=== PATIENT | female | born 1950 | race African-American/Black ===

== ENCOUNTER 2016-03-20 09:28 | Emergency (ER) | payer MEDICARE, SELFPAY ==
[2016-03-20] MEDS ORDERED: Nitroglycerin 0.4 MG TAB (25 Tab Bottle) ONE ×2 (09:45→10:07)
[2016-03-20] MEDS ORDERED: methylPREDNISolone Sod Succ/PF 125 MG/2 ML VIAL ONE (09:45)
[2016-03-20 10:03] LABS: #Basophils 0.2 thou/uL (0.0-0.2); #Lymphocytes 2.7 thou/uL (1.20-3.40); #Monocytes 0.6 thou/uL (0.11-0.59); #Neutrophils 11.4 thou/uL (1.40-6.50); %Basophils 1.1 % (0.0-1.0); %Eosinophils 0.2 % (0.0-10.0); %Monocytes 3.9 % (0.0-10.0); Hematocrit 46.5 % (36.0-47.0); Mean Platelet Volume 8.4 fL (7.4-10.4); Red Blood Cell (RBC) Count 4.78 mill/uL (4.20-5.40); White Blood Cell (WBC) Count 14.8 thou/uL (4.8-10.8)
[2016-03-20 10:04] LABS: PTT 26.6 SEC (22.9-36.1); Prothrombin Time 13.1 SEC (12.0-14.7)
[2016-03-20 10:23] LABS: ALT (SGPT) 9 U/L (0-55); AST (SGOT) 18 U/L (5-34); Alkaline Phosphatase 77 U/L (40-150); Anion Gap 18 mmol/L (10-20); BUN (Urea Nitrogen) 18 mg/dL (9.8-20.1); Bilirubin, Total 0.2 mg/dL (0.2-1.2); CK (CPK) 116 U/L (29-168); Calc. Creatinine Clearance 0 mL/min (70-130); Calcium 8.9 mg/dL (7.8-10.44); Carbon Dioxide 19 mmol/L (23-31); Chloride 111 mmol/L (98-107); Estimated GFR-MDRD 67; Globulin 3.4 g/dL (2.4-3.5); Lipase 16 U/L (8-78); Troponin I 0.297 ng/mL (< 0.028)
[2016-03-20] MEDS ORDERED: Enoxaparin Sodium 100 MG/ML SYRINGE ONE (10:35)
[2016-03-20] MEDS ORDERED: Nitroglycerin 2% Ointment 1 INCH/1 GM Packet ONE (10:35)
[2016-03-20] MEDS ORDERED: Sodium Chloride 0.9% 100 ML ONE (11:53)
[2016-03-20] MEDS ORDERED: cefTRIAXone\\ROCEPHIN 1 GM VIAL ONE (11:53)
[2016-03-20] MEDS ORDERED: Azithromycin 500 MG VIAL ONE (11:53)
[2016-03-20] MEDS ORDERED: Magnesium Sulfate 2 GM/100 ML BAG ONE (12:55)
[2016-03-20] MEDS ORDERED: Fentanyl 100 MCG/2 ML VIAL ONE ×2 (13:10→13:24)
[2016-03-20] MEDS ORDERED: Midazolam HCl 10 mg/2 ml Vial ONE ×2 (13:10→13:36)
[2016-03-20] MEDS ORDERED: Albuterol Sulfate 1.25 MG/3 ML NEB ONE (13:14)
[2016-03-20] MEDS ORDERED: Furosemide 40 MG/4 ML VIAL ONE (13:42)
--- NOTE | 2016-03-20 13:58 | ERRECORD ---
[facility] EMERGENCY RECORD HPI SHORTNESS OF BREATH (09:40 MBRI) CHIEF COMPLAINT: Patient presents for evaluation of shortness of breath, Patient presents for evaluation of chest pain. HISTORIAN: History provided by patient. LOCATION: Symptoms are localized, most severe in substernal area, No radiation of pain, Pain has not moved in location over time. QUALITY: Symptoms described as tightness, Symptoms described as wheezing, Pain is dull in nature, described as pressure-like, described as tightness reported. SEVERITY: Maximum severity of symptoms severe, Currently symptoms are severe. TIME COURSE: Gradual onset of symptoms, 15, hours prior to arrival, are constant. ASSOCIATED WITH: No associated anxiety, No associated chills, Associated with cough, Associated with chest pain, No associated diaphoresis, No associated diarrhea, Associated with dyspnea on exertion, No associated fever, No associated hemoptysis, No associated increased inhaler use, No associated nausea, No associated palpitations, Associated with paroxysmal nocturnal dyspnea, Associated with peripheral edema, No associated pleuritic chest pain, No associated upper respiratory infection, No associated vomiting, Associated with wheezing. EXACERBATED BY: Patient's condition exacerbated by exercise, Patient's condition exacerbated by lying flat, Patient's condition exacerbated by smoking. RELIEVED BY: Patient's condition relieved by nothing, Patient's condition relieved by nothing because patient has not tried anything for relief. RISK FACTORS: Coronary artery disease risk factors, include smoking, No thoracic aortic dissection risk factors, Pulmonary embolism risk factors, include smoking. ROS (09:42 MBRI) CONSTITUTIONAL: Negative constitutional review of systems, Historian denies chills, denies fever. EYES: Negative eye review of systems. ENT: Negative ears, nose, throat review of systems. CARDIOVASCULAR: Historian reports chest pain, substernal, no radiation, Historian reports diaphoresis, reports dyspnea on exertion, reports edema, denies syncope, denies palpitations. RESPIRATORY: Historian denies cough, reports shortness of breath, denies sputum, denies stridor, reports wheezing. GI: Negative gastrointestinal review of systems, Historian denies abdominal pain, denies nausea, denies vomiting. GENITOURINARY FEMALE: Negative genitourinary review of systems. MUSCULOSKELETAL: Negative musculoskeletal review of systems. SKIN: Negative skin review of systems. &a-1R&a+25V*p+0X*[id number]*c202B*c15G*c2P*p-0X&a-25V&a+1R Name: Hayden Corado : 1950 F66 MedRec: [id number] AcctNum: [id number] Prepared: Angelina Mar 20, 2016 13:55 by Interface Page 1 of 5 pMD [facility] EMERGENCY RECORD NEUROLOGIC: Negative neurologic review of systems, Historian denies headache, denies sensory changes, denies speech changes. ENDOCRINE: Negative endocrine review of systems. HEMO/LYMPHATIC: Normal hematologic/lymphatic system review. NOTES: All systems reviewed, negative except as described above. PAST MEDICAL HISTORY (09:40 KMOR) MEDICAL HISTORY: No past medical history, Flu vaccine not up to date, Tetanus not up to date, Pneumococcal vaccine not up to date. FEMALE SURGICAL HISTORY: Patient has no surgical history. PSYCHIATRIC HISTORY: No previous psychiatric history. SOCIAL HISTORY: Patient currently uses tobacco, smokes cigarettes, daily, Patient smokes 1 pack per day. KNOWN ALLERGIES No Known Drug Allergies CURRENT MEDICATIONS (09:58 LGIB) None VITAL SIGNS VITAL SIGNS: BP: 187/127, Pulse: 106, Resp: 40, Pain: 0, O2 sat: 90 on 2L Oxygen, Time: 03/20/2016 09:37. (09:37 KMOR) Temp: 97.4 (Oral), Time: 03/20/2016 09:48. (09:48 LGIB) BP: 163/93, Pulse: 96, Resp: 34, Pain: 0, O2 sat: 93 on 3L Oxygen, Time: 03/20/2016 09:45. (09:45 KMOR) BP: 147/87, Pulse: 80, Resp: 29, Pain: 0, O2 sat: 91 on 4L Oxygen, Time: 03/20/2016 10:08. (10:08 KMOR) BP: 152/89, Pulse: 78, Resp: 30, Pain: 0, O2 sat: 97 on 4L Oxygen, Time: 03/20/2016 10:23. (10:23 KMOR) BP: 175/97, Pulse: 85, Resp: 22, Pain: 0, O2 sat: 98 on 4L Oxygen, Time: 03/20/2016 11:00. (11:00 KMOR) BP: 162/97, Pulse: 82, Resp: 22, Pain: 0, O2 sat: 99 on 3L Oxygen, Time: 03/20/2016 11:50. (11:50 KMOR) BP: 156/102, Pulse: 112, Resp: 30, Pain: 0, O2 sat: 91 on 3L Oxygen, Time: 03/20/2016 12:35. (12:35 KMOR) BP: 123/87, Pulse: 103, Resp: 24, Pain: 0, O2 sat: 98 on Ventilator, Time: 03/20/2016 13:22. (13:22 KMOR) BP: 120/74, Pulse: 97, Resp: 20, Temp: 97.1 (Rectal), Pain: 0, O2 sat: 98 on Ventilator, Time: 03/20/2016 13:45. (13:45 KMOR) PHYSICAL EXAM (09:43 MBRI) CONSTITUTIONAL: Vital Signs Reviewed, Pulse, tachycardic, Blood pressure, hypertensive, Respiratory rate, increased, Abnormal Pulse Oximetry, Patient appears, in moderate pain distress, Patient alert and oriented to person, place and time, Nursing notes reviewed. HEAD: Head exam normal, Head exam included findings of head &a-1R&a+25V*p+0X*[id number]*c202B*c15G*c2P*p-0X&a-25V&a+1R Name: Hayden Corado : 1950 F66 MedRec: [id number] AcctNum: [id number] Prepared: Angelina Mar 20, 2016 13:55 by Interface Page 2 of 5 pMD [facility] EMERGENCY RECORD atraumatic, normocephalic. EYES: Eye exam included findings of eyelids normal to inspection, Pupils equally round and reactive to light, Extraocular muscles intact. ENT: ENT exam normal, Ear exam normal, Nose exam normal. NECK: Neck exam included findings of normal range of motion, Trachea midline, no tenderness, no abrasions, no contusions, no ecchymosis. RESPIRATORY CHEST: Respiratory exam included findings of, moderate respiratory distress, Breath sounds not clear, Wheezing present, audibly, posteriorally, diffusely, No rales, No rhonchi, Breath sounds diminished, Chest exam included findings of chest movement symmetrical, Chest expansion equal, no tenderness, no crepitus. CARDIOVASCULAR: Cardiovascular exam included findings of, rate tachycardic, rhythm regular, Heart sounds normal, Carotids normal, Pedal pulses normal. ABDOMEN FEMALE: Abdominal exam normal, Abdominal exam included findings of abdomen nontender, Bowel sounds normal. BACK: Back exam included findings of normal inspection, no tenderness. UPPER EXTREMITY: Upper extremity exam included findings of inspection normal, Range of motion normal, Motor strength normal, Sensation intact, Radial pulse normal, no cyanosis, no clubbing, no edema. LOWER EXTREMITY: Lower extremity exam included findings of inspection normal, Range of motion normal, Motor strength normal, Sensation intact, Pedal pulse normal, Jhonatan's negative, no cyanosis, no clubbing, no edema, no calf tenderness, no palpable cords. NEURO: Madhuri coma scale 15, Neuro exam findings include patient oriented to person, place and time, Speech normal, Gait normal. SKIN: Skin exam included findings of skin warm, dry, and normal in color. PSYCHIATRIC: Psychiatric exam included findings of patient oriented to person place and time. EKG INTERPRETATION (09:45 MBRI) 12 LEAD EKG INTERPRETATION: 12 lead EKG interpreted by Emergency Department Physician at time of study, 12 lead EKG shows, sinus tachycardia, Rate (beats per minute): 111, with no ectopics, Conduction with, nonspecific intraventricular conduction delay, ST, depression, in lead I, in lead II, in aVl, in aVf, in V4, in V5, in V6, [place] normal, Biatrial enlargement, LVH with repol abnml, possible age undetermined inf infarct. RADIOLOGYINTERPRETATION (11:53 MBRI) CHEST: Chest CT, with contrast shows, patchy &a-1R&a+25V*p+0X*q0442N*c202B*c15G*c2P*p-0X&a-25V&a+1R Name: Hayden Corado : 1950 F66 MedRec: [id number] AcctNum: [id number] Prepared: Angelina Mar 20, 2016 13:55 by Interface Page 3 of 5 pMD [facility] EMERGENCY RECORD infiltrate, to the right upper lobe, to the right lower lobe, no hemothorax, pleural effusion less than 10% on the left, pleural effusion less than 10% on the right, no pulmonary embolism. REFRIGERATION PERSON: Preliminary review of CT scans by, Radiologist. MEDICATION ADMINISTRATION SUMMARY Drug Name: *midazolam injection, Dose Ordered: 10 mg, Route: IV Fluid Infusion, Status: Given, Time: 13:48 03/20/2016, Drug Name: *Lasix injection, Dose Ordered: 80 mg, Route: IV Push, Status: Given, Time: 13:43 03/20/2016, Drug Name: *Quelicin, Dose Ordered: 100 mg, Route: IV Push, Status: Given, Time: 13:33 03/20/2016, Drug Name: *fentaNYL (PF) injection, Dose Ordered: 50 mcg, Route: IV Push, Status: Given, Time: 13:30 03/20/2016, Drug Name: *Versed injection, Dose Ordered: 5 mg, Route: IV Push, Status: Given, Time: 13:20 03/20/2016, Drug Name: *fentaNYL (PF) injection, Dose Ordered: 100 mcg, Route: IV Push, Status: Given, Time: 13:15 03/20/2016, Drug Name: magnesium sulfate injection, Dose Ordered: 2 g, Route: IV Piggy Back, Status: Given, Time: 13:00 03/20/2016, Drug Name: *Amidate, Dose Ordered: 20 mg, Route: IV Push, Status: Given, Time: 13:00 03/20/2016, Drug Name: *DuoNeb, Dose Ordered: 3 mL, Route: Nebulize, Status: Given, Time: 12:46 03/20/2016, Drug Name: azithromycin intravenous, Dose Ordered: 500 mg, Route: IV Piggy Back, Status: Given, Time: 12:02 03/20/2016, Drug Name: cefTRIAXone injection, Dose Ordered: 2 g, Route: IV Piggy Back, Status: Given, Time: 12:00 03/20/2016, Drug Name: Lovenox, Dose Ordered: 1 mg/kg, Route: Subcutaneous, Status: Given, Time: 11:09 03/20/2016, Drug Name: Nitro-Bid transdermal, Dose Ordered: 1 inch, Route: Topical, Status: Given, Time: 11:08 03/20/2016, Drug Name: *nitroglycerin sublingual, Dose Ordered: 0.4 mg, Route: Sublingual, Status: Given, Time: 09:52 03/20/2016, Drug Name: methylPREDNISolone sodium succ injection, Dose Ordered: 125 mg, Route: IV Push, Status: Given, Time: 09:51 03/20/2016, Drug Name: sodium chloride 0.9 % intravenous, Dose Ordered: 125 mL/hr, Route: IV Fluid Infusion, Status: Given, Time: 09:50 03/20/2016, Drug Name: aspirin oral, Dose Ordered: 324 mg, Route: Oral, Status: Given, Time: 09:48 03/20/2016, Drug Name: *DuoNeb, Dose Ordered: 3 mL, Route: Nebulize, Status: Given, Time: 09:40 03/20/2016, *Additional information available in notes, Detailed record available in Medication Service section. DOCTOR NOTES RE-EVALUATION: Routine re-evaluation, after administration of bronchodilator nebulizer treatments, Routine re-evaluation, after administration of nitroglycerin, Routine re-evaluation, after &a-1R&a+25V*p+0X*s9820A*c202B*c15G*c2P*p-0X&a-25V&a+1R Name: Hayden Corado : 1950 F66 MedRec: [id number] AcctNum: [id number] Prepared: Angelina Mar 20, 2016 13:55 by Interface Page 4 of 5 pMD [facility] EMERGENCY RECORD observation, Routine re-evaluation, after administration of oxygen therapy, The patient's condition has improved, Pt with Improved air movement and sig decrease in her wheezing. She continues to have some hypoxia in the 88-90 range on 2-3 L NC so this has been increased to 4LPM. She demonstrates some rales in the rizwan bases of the lungs. Will continue with second Neb and monitor. (10:07 MBRI) Routine re-evaluation, after administration of bronchodilator nebulizer treatments, Routine re-evaluation, after observation, Routine re-evaluation, after administration of oxygen therapy, The patient's condition has improved, Pt appears clinically improved. (10:37 MBRI) The patient's condition has improved, VS improved. Pt pain free. (11:52 MBRI) PATIENT PLAN: The patient requires a transfer and will be transferred, per physician request, due to availability of specialty care, Transfer form completed, Accepted for care by Dr Farah , at 1158. (11:52 MBRI) PROBLEM LIST No recorded problems DIAGNOSIS (11:52 MBRI) FINAL: PRIMARY: NSTEMI, ADDITIONAL: PNEUMONIA UNSPECIFIED ORGANISM, uncontrolled HTN, wheezing with likely COPD exacerbation. PRESCRIPTION No recorded prescriptions DISPOSITION PATIENT: Disposition Type: Transfer, Disposition: Transfer to [facility], Condition: Guarded. (10:36 MBRI) Patient left the department. (13:53 KMOR) Collins: KMOR=SHANE Medel, Nery LGIB=SHANE Young, Elke MBRI=DO Umana Matthew &a-1R&a+25V*p+0X*d4761M*c202B*c15G*c2P*p-0X&a-25V&a+1R Name: Hayden Corado : 1950 F66 MedRec: [id number] AcctNum: [id number] Prepared: Angelina Mar 20, 2016 13:55 by Interface Page 5 of 5 pMD MTDD
--- NOTE | 2016-03-20 14:02 | PICIS ---
[facility] EMERGENCY RECORD COMMUNICATIONS (12:07 LGIB) COMMUNICATIONS: Ambulance service, contacted at 1203, Name of provider [facility], Person contacted [facility], requested for transfer to another facility, by advanced life support transport. TRIAGE (MonMar 20, 2016 09:30 KMOR) TRIAGE NOTES: sob and chest pain started last night. (MonMar 20, 2016 09:30 KMOR) PATIENT: NAME: Hayden Corado, AGE: 66, GENDER: female, : Mon1950, TIME OF GREET: MonMar 20, 2016 09:29, PREFERRED LANGUAGE: Turkish, ECODE BILLING MAP: [facility], SSN: [id number], Zip Code: [address], KG WEIGHT: 90.72, PHONE: , , , PERSON ID: [id number], PCP: none. (MonMar 20, 2016 09:30 KMOR) PAYMENT: [facility] Medicare. (09:51) COMPLAINT: Shortness of Breath. (MonMar 20, 2016 09:30 KMOR) ADMISSION: URGENCY: 2 Emergent, ADMISSION SOURCE: Home, TRANSPORT: CAR, BED: ER -01. (MonMar 20, 2016 09:30 KMOR) ASSESSMENT: Assessment: A&OX4. AUDIABLE WHEEZING, Symptoms began yesterday. (09:40 KMOR) PAIN: No complaint of pain. (09:40 KMOR) SIRS SCORING: Heart Rate 110-139 (2), respiratory rate 25-34 (1), Mental Status altered: no (0), Yes, Infection or Suspected Infection. (09:40 KMOR) TRIAGE SCREENING: Patient denies suicidal ideation, Patient denies presence of domestic violence. (09:40 KMOR) PROVIDERS: TRIAGE NURSE: Nery Medel RN. (MonMar 20, 2016 09:30 KMOR) VITAL SIGNS: BP 187/127, Pulse 106, Resp 40, Pain 0, O2 Sat 90, on 2L Oxygen, Time 03/20/2016 09:37. (09:37 KMOR) KNOWN ALLERGIES No Known Drug Allergies CURRENT MEDICATIONS (09:58 LGIB) None VITAL SIGNS VITAL SIGNS: BP: 187/127, Pulse: 106, Resp: 40, Pain: 0, O2 sat: 90 on 2L Oxygen, Time: 03/20/2016 09:37. (09:37 KMOR) Temp: 97.4 (Oral), Time: 03/20/2016 09:48. (09:48 LGIB) BP: 163/93, Pulse: 96, Resp: 34, Pain: 0, O2 sat: 93 on 3L Oxygen, Time: 03/20/2016 09:45. (09:45 KMOR) BP: 147/87, Pulse: 80, Resp: 29, Pain: 0, O2 sat: 91 on 4L Oxygen, Time: 03/20/2016 10:08. (10:08 KMOR) BP: 152/89, Pulse: 78, Resp: 30, Pain: 0, O2 sat: 97 on 4L Oxygen, Time: 03/20/2016 10:23. (10:23 KMOR) BP: 175/97, Pulse: 85, Resp: 22, Pain: 0, O2 sat: 98 on 4L Oxygen, Time: 03/20/2016 11:00. (11:00 KMOR) BP: 162/97, Pulse: 82, Resp: 22, Pain: 0, O2 sat: 99 on 3L Oxygen, Time: &a-1R&a+25V*p+0X*c2033R*c202B*c15G*c2P*p-0X&a-25V&a+1R Name: Hayden Corado : 1950 F66 MedRec: [id number] AcctNum: [id number] Prepared: Angelina Mar 20, 2016 13:59 by Interface Page 1 of 21 pMD [facility] EMERGENCY RECORD 03/20/2016 11:50. (11:50 KMOR) BP: 156/102, Pulse: 112, Resp: 30, Pain: 0, O2 sat: 91 on 3L Oxygen, Time: 03/20/2016 12:35. (12:35 KMOR) BP: 123/87, Pulse: 103, Resp: 24, Pain: 0, O2 sat: 98 on Ventilator, Time: 03/20/2016 13:22. (13:22 KMOR) BP: 120/74, Pulse: 97, Resp: 20, Temp: 97.1 (Rectal), Pain: 0, O2 sat: 98 on Ventilator, Time: 03/20/2016 13:45. (13:45 KMOR) NURSING ASSESSMENT: CARDIOVASCULAR (10:23 KMOR) CARDIOVASCULAR: Cardiovascular assessment findings include heart rate, tachycardic, Rate 120s, Heart rhythm, sinus tachycardia, Heart sounds normal, S1, S2, Left radial pulse +3(easily palpated, considered normal), Right radial pulse +3(easily palpated, considered normal), Left dorsalis pedis pulse +3(easily palpated, considered normal), Right dorsalis pedis pulse +3(easily palpated, considered normal), Associated with dyspnea, with exertion, when lying flat (orthopnea), with position change, no associated syncopal episode, no associated weakness. NURSING ASSESSMENT: FALL RISK (10:24 KMOR) FALL RISK: Fall risk assessment findings include: no history of falls (0), No bed rest greater than 2 days (0), No use of level of consciousness altering agents with mentation or cognitive changes (0), No change in blood pressure (0), No sensory deficits (0), No impaired mobility (0), No neurologic diagnosis (0), No elimination problems (0), No confusion (0), Total score 0. NURSING ASSESSMENT: RESPIRATORY /CHEST (10:08 KMOR) CONSTITUTIONAL: Patient arrives, via hospital wheelchair, Unsteady gait, Assistance to cart, History obtained from patient, Patient appears, in respiratory distress, uncomfortable, Patient cooperative, Patient alert, Oriented to person, place and time, Skin abnormal, Skin temperature is cold, Skin dry, Skin normal in color, Mucous membranes pink, Mucous membranes moist, Patient, poorly groomed, Patient complains of Shortness of breath, Patient reports short of breath since last night, reports chest pressure. Reports cough. PAIN: Patient rates pain as 0 out of 10. RESPIRATORY/CHEST: Lungs auscultated, Breath sounds with wheezing, audibly, scattered, Respiratory assessment findings include respiratory effort, labored, shallow, tachypneic, Respirations regular, Converses, in short phrases, Neck and chest exam findings include trachea midline, Chest expansion equal, Chest movement symmetrical, Signs of distress, tripod positioning, in severe distress, Retractions, intercostal, Associated with cough, loose, no associated fever. &a-1R&a+25V*p+0X*r3983F*c202B*c15G*c2P*p-0X&a-25V&a+1R Name: Hayden Corado : 1950 F66 MedRec: [id number] AcctNum: [id number] Prepared: Angelina Mar 20, 2016 13:59 by Interface Page 2 of 21 pMD [facility] EMERGENCY RECORD ENT: Ear assessment findings include ear normal to inspection, no discharge, no complaint of congestion, Mouth and throat assessment findings include mouth inspection normal, Uvula normal, Tonsils normal, Mucous membranes pink, and moist, Able to swallow, Speech normal, no associated fever. NURSING PROCEDURE: BEDSIDE SIRS TESTING (10:24 KMOR) SCORES: Heart Rate 55-109 (0), Temp range 96.8-101.1 (0), respiratory rate 25-34 (1), Latest WBC 3-14.9 (0), Mental Status altered: no (0), Yes, Infection or Suspected Infection. NURSING PROCEDURE: CIGARETTE CATCHER (09:41 KMOR) PATIENT IDENTIFIER: Patient actively involved in identification process, Patient's identity verified by patient stating name, Patient's identity verified by patient stating date. CIGARETTE CATCHER: Cardiac monitoring indicated for SHORTNESS OF BREATH, Patient placed on case monitor, Heart rate: 120S, showing sinus tachycardia, Patient placed on non-invasive blood pressure monitor, with disposable blood pressure cuff applied, Patient placed on continuous pulse oximetry, Adult/pediatric oxisensor applied, Oxygen saturation 90%. NOTES: Patient tolerated procedure well. NURSING PROCEDURE: EKG CHART (09:30 KMOR) PATIENT IDENTIFIER: Patient actively involved in identification process, Patient's identity verified by patient stating name, Patient's identity verified by patient stating date. EKG: EKG indicated for SHORTNESS OF BREATH, 12 lead EKG performed on the left chest, done by shane JOSEPH, first EKG. FOLLOW-UP: After procedure, EKG for interpretation given to Dr. UMANA. NURSING PROCEDURE: GASTRIC TUBE (13:29 KMOR) PATIENT IDENTIFIER: Patient actively involved in identification process, Patient's identity verified by patient stating name, Patient's identity verified by patient stating date. GASTRIC TUBE: Gastric tube indicated for airway maintenance, 16fr gastric tube inserted, into the oral cavity, in one attempt, Placement verified by auscultation, Placement verified by stomach contents in tube, Placement verified by x-ray, of greenish-yellow fluid, Gastric tube to high suction, Notes: 60cm at lip. NURSING PROCEDURE: INTUBATION (13:26 KMOR) PATIENT IDENTIFIER: Patient actively involved in identification process, Patient's identity verified by patient stating name, Patient's identity verified by patient stating date, Patient's identity verified by family member. INTUBATION: Intubation indicated for severe respiratory distress, Prior to intubation oxygen saturation 90%, by &a-1R&a+25V*p+0X*u6411V*c202B*c15G*c2P*p-0X&a-25V&a+1R Name: Hayden Corado : 1950 F66 MedRec: [id number] AcctNum: [id number] Prepared: Angelina Mar 20, 2016 13:59 by Interface Page 3 of 21 pMD [facility] EMERGENCY RECORD adult/pediatric oxisensor, on 100%, via non-rebreather mask applied, Prior to intubation breath sounds with wheezing, Patient intubated orally, Intubated by Dr. Umana, using a 7.5 mm endotracheal tube, in one attempts, Number at the lip (cm) 24 cm, Yankauer suction at head of bed, Patient suctioned during intubation, Ventilated with Ambu bag post intubation, Endotracheal tube secured, with tube mukherjee, Positive carbon dioxide by detector, Chest x-ray ordered to confirm placement. FOLLOW-UP: Post intubation oxygen saturation 98%, After intubation, breath sounds positive for wheezing. NOTES: Patient tolerated procedure well. NURSING PROCEDURE: IV (09:42 KMOR) PATIENT IDENITIFIER: Patient actively involved in identification process, Patient's identity verified by patient stating name, Patient's identity verified by patient stating date. IV SITE 1: IV therapy indicated for hydration, IV therapy indicated for medication administration, IV established, to the left hand, using a 20 gauge catheter, in two attempts, Saline lock established, Flushed with normal saline (mls): 10, Labs drawn at time of placement, labeled in the presence of the patient and sent to lab. FOLLOW-UP SITE 1: After procedure, 2x3 ensure dressing applied, After procedure, no drainage at IV site, After procedure, no swelling at IV site, After procedure, no redness at IV site. NOTES: Procedure done by SHANE JOSEPH. NURSING PROCEDURE: LAB DRAW (09:57 KMOR) PATIENT IDENTIFIER: Patient actively involved in identification process, Patient's identity verified by patient stating name, Patient's identity verified by patient stating date. LAB DRAW: Lab draw indicated for obtaining specimens for evaluation, Subsequent lab draw performed, by venipuncture. NURSING PROCEDURE: NURSE NOTES NURSES NOTES: Notes: O2 increased to 4L by Dr. Umana, saturation 89% prior to increase. (10:07 KMOR) Notes: Dr. Umana in to discuss results and plan of care with patient. (11:14 KMOR) Notes: Patient began to wheeze again, Dr. Umana notified and orders received. (12:47 KMOR) Notes: PATIENT BECAME EXTREMELY ANXIOUS AND HEART RATE INCREASED TO 140S. PT STARTED TO NOT FOLLOW INSTRUCTIONS AND BECAME INCREASINGLY SHORT OF BREATH. DR UMANA CALLED AND IMMEDIATELY CAME DOWN TO EXAMINE PATIENT. (12:42 LGIB) Notes: Patient on neb treatement but became very anxious and not wanting to keep neb treatment on, pt reports she cnat breath, this nurse and omar at bedside, azithromycin stopped due to possible allergic recation, Dr. Umana called to beside, patient diaphoric, cool rags placed on patient, non-rebreather placed by Dr. Umana. Tried to get patient to calm down and focus on breathing, patient &a-1R&a+25V*p+0X*i0083I*c202B*c15G*c2P*p-0X&a-25V&a+1R Name: Hayden Corado : 1950 F66 MedRec: [id number] AcctNum: [id number] Prepared: Angelina Mar 20, 2016 13:59 by Interface Page 4 of 21 pMD [facility] EMERGENCY RECORD became more altered and fighting treatment. Patient's son stated to do whatever needed to be done. Dr. Umana ordered for intubation. Supplies brought to bedside, House Sup called to assist. (13:00 KMOR) NURSING PROCEDURE: OXYGEN THERAPY PATIENT IDENTIFIER: Patient actively involved in identification process, Patient's identity verified by patient stating name, Patient's identity verified by patient stating date. (09:30 KMOR) OXYGEN THERAPY: 3L oxygen given, via nasal cannula applied, Applied by SHANE Joseph. (09:35 LGIB) Oxygen therapy indicated for wheezing, Oxygen therapy indicated for desaturation, Oxygen therapy indicated for respiratory distress, Prior to procedure, breath sounds with wheezing, audibly, diffusely, Oxygen saturation 88%, by adult/pediatric oxisensor, multiple pulse oximetry reading, 2L oxygen given, via nasal cannula applied, Applied by SHANE Joseph. (09:30 KMOR) FOLLOW-UP: After procedure, oxygen saturation 91%, After procedure, breath sounds with wheezing, posteriorally, diffusely. (09:30 KMOR) NURSING PROCEDURE: RESPIRATORY INTERVENTIONS PATIENT IDENTIFIER: Patient actively involved in identification process, Patient's identity verified by patient stating name, Patient's identity verified by patient stating date. (09:40 KMOR) RESPIRATORY INTERVENTIONS: Respiratory interventions indicated for respiratory distress, Respiratory interventions indicated for wheezing, Pre-intervention breath sounds with wheezing, audibly, diffusely, Pre-intervention oxygen saturation 93%, by adult/pediatric oxisensor, multiple pulse oximetry reading. (09:40 KMOR) FOLLOW-UP: After procedure, oxygen saturation 98%, on 3L, Breath sounds otherwise clear. (11:18 KMOR) NURSING PROCEDURE: TRANSPORT TO TESTS TRANSPORT TO TESTS: Transport indicated to facilitate diagnosis, Patient transported to CT scan, via cart, Accompanied by x-ray geoscience technician. (10:35 LGIB) FOLLOW-UP: After procedure, patient returned to emergency department. (11:00 KMOR) NURSING PROCEDURE: URINE COLLECTION (13:27 KMOR) PATIENT IDENTIFIER: Patient actively involved in identification process, Patient's identity verified by patient stating name, Patient's identity verified by patient stating date. URINE COLLECTION FEMALE: Simple singh inserted, using a 16 fr pre-connected catheter, in one attempt, output amount (mL) 100ml, &a-1R&a+25V*p+0X*k4856E*c202B*c15G*c2P*p-0X&a-25V&a+1R Name: Hayden Corado : 1950 F66 MedRec: [id number] AcctNum: [id number] Prepared: Angelina Mar 20, 2016 13:59 by Interface Page 5 of 21 pMD [facility] EMERGENCY RECORD urine yellow in color, and cloudy, Singh has been anchored to leg and labeled with date and time, Specimen labeled in the presence of the patient and sent to lab, Specimen obtained for culture labeled in the presence of the patient and sent to lab. ORDER DETAILS Order Name: B type Natriuretic Peptide, Status: Active, Time: 09:38 03/20/2016, User: MBRI, - Ordered for: DO Umana Matthew, - Entered by: DO Umana Matthew - Angelina Mar 20, 2016 09:38, - Quantity: 1, Order Name: CIGARETTE CATCHER ED, Status: Done, Time: 09:40 03/20/2016, User: KMOR, - Ordered for: DO Umana Matthew, - Entered by: DO Umana Matthew - Angelina Mar 20, 2016 09:38, - Quantity: 1, Order Name: Cardiac Profile w/CKMB & Troponin - I, Status: Active, Time: 09:38 03/20/2016, User: MBRI, - Ordered for: DO Umana Matthew, - Entered by: DO Umana Matthew - Angelina Mar 20, 2016 09:38, - Quantity: 1, Order Name: CBC with Differential, Status: Active, Time: 09:38 03/20/2016, User: MBRI, - Ordered for: DO Umana Matthew, - Entered by: DO Umana Matthew - Angelina Mar 20, 2016 09:38, - Quantity: 1, Order Name: CK (CPK), Status: Active, Time: 09:38 03/20/2016, User: MBRI, - Ordered for: DO Umana Matthew, - Entered by: DO Umana Matthew - Angelina Mar 20, 2016 09:38, - Quantity: 1, Order Name: Comprehensive Metabolic Panel, Status: Active, Time: 09:38 03/20/2016, User: MBRI, - Ordered for: DO Umana Matthew, - Entered by: DO Umana Matthew - Angelina Mar 20, 2016 09:38, - Quantity: 1, Order Name: CTA Angio Chest W WO Con(PE Protocol), Status: Active, Time: 10:09 03/20/2016, User: NITA, - Ordered for: DO Umana Matthew, - Entered by: DO Umana Matthew - Angelina Mar 20, 2016 10:09, - Quantity: 1, Order Name: Culture, Blood, Status: Active, Time: 09:38 03/20/2016, User: NITA, - Ordered for: DO Umana Matthew, - Entered by: DO Umana Matthew - Angelina Mar 20, 2016 09:38, - Quantity: 1, Order Name: D-Dimer (Quantitative), Status: Active, Time: 09:38 03/20/2016, User: NITA, - Ordered for: DO Umana Matthew, &a-1R&a+25V*p+0X*g5726T*c202B*c15G*c2P*p-0X&a-25V&a+1R Name: Hayden Corado : 1950 F66 MedRec: [id number] AcctNum: [id number] Prepared: Angelina Mar 20, 2016 13:59 by Interface Page 6 of 21 pMD [facility] EMERGENCY RECORD - Entered by: DO Umana Matthew - Angelina Mar 20, 2016 09:38, - Quantity: 1, Order Name: EKG 12 Lead in Emergency Room, Status: Active, Time: 09:38 03/20/2016, User: NITA, - Ordered for: DO Umana Matthew, - Entered by: DO Umana Matthew - Angelina Mar 20, 2016 09:38, - Quantity: 1, Order Name: ERRT * Smal Vol Neb Initial Trmt, Status: Active, Time: 09:38 03/20/2016, User: NITA, - Ordered for: DO Umana Matthew, - Entered by: DO Umana Matthew - Angelina Mar 20, 2016 09:38, - Quantity: 1, Order Name: ERRT Oxygen Usage ER, Status: Active, Time: 09:38 03/20/2016, User: NITA, - Ordered for: DO Umana Matthew, - Entered by: DO Umana Matthew - Angelina Mar 20, 2016 09:38, - Quantity: 1, Order Name: ERRT Pulse Oximeter ER, Status: Active, Time: 09:38 03/20/2016, User: MBRI, - Ordered for: DO Umana Matthew, - Entered by: DO Umana Matthew - Angelina Mar 20, 2016 09:38, - Quantity: 1, Order Name: Lipase, Status: Active, Time: 09:38 03/20/2016, User: MBRI, - Ordered for: DO Umana Matthew, - Entered by: DO Umana Matthew - Angelina Mar 20, 2016 09:38, - Quantity: 1, Order Name: Protime with INR, Status: Active, Time: 09:38 03/20/2016, User: MBRI, - Ordered for: DO Umana Matthew, - Entered by: DO Umana Matthew - Angelina Mar 20, 2016 09:38, - Quantity: 1, Order Name: PTT, Status: Active, Time: 09:38 03/20/2016, User: MBRI, - Ordered for: DO Umana Matthew, - Entered by: DO Umana Matthew - Angelina Mar 20, 2016 09:38, - Quantity: 1, Order Name: SALINE LOCK, Status: Done, Time: 09:40 03/20/2016, User: KMOR, - Ordered for: DO Dong, Nemesio, - Entered by: DO Umana Matthew - Angelina Mar 20, 2016 09:38, - Quantity: 1, Order Name: XR Chest 1 View Portable, Status: Active, Time: 13:27 03/20/2016, User: SEC, - Ordered for: DO Umana Matthew, - Entered by: SHANE Yadav, [facility] Angelina Mar 20, 2016 13:27, - Quantity: 1, Order Name: XR Chest 1 View Portable, Status: Active, Time: 09:38 03/20/2016, User: MBRI, - Ordered for: DO Umana Matthew, - Entered by: DO Umana Matthew - Angelina Mar 20, 2016 09:38, - Quantity: 1. &a-1R&a+25V*p+0X*z7275R*c202B*c15G*c2P*p-0X&a-25V&a+1R Name: Hayden Corado : 1950 F66 MedRec: [id number] AcctNum: [id number] Prepared: Angelina Mar 20, 2016 13:59 by Interface Page 7 of 21 pMD [facility] EMERGENCY RECORD MEDICATION ADMINISTRATION SUMMARY Drug Name: *midazolam injection, Dose Ordered: 10 mg, Route: IV Fluid Infusion, Status: Given, Time: 13:48 03/20/2016, Drug Name: *Lasix injection, Dose Ordered: 80 mg, Route: IV Push, Status: Given, Time: 13:43 03/20/2016, Drug Name: *Quelicin, Dose Ordered: 100 mg, Route: IV Push, Status: Given, Time: 13:33 03/20/2016, Drug Name: *fentaNYL (PF) injection, Dose Ordered: 50 mcg, Route: IV Push, Status: Given, Time: 13:30 03/20/2016, Drug Name: *Versed injection, Dose Ordered: 5 mg, Route: IV Push, Status: Given, Time: 13:20 03/20/2016, Drug Name: *fentaNYL (PF) injection, Dose Ordered: 100 mcg, Route: IV Push, Status: Given, Time: 13:15 03/20/2016, Drug Name: magnesium sulfate injection, Dose Ordered: 2 g, Route: IV Piggy Back, Status: Given, Time: 13:00 03/20/2016, Drug Name: *Amidate, Dose Ordered: 20 mg, Route: IV Push, Status: Given, Time: 13:00 03/20/2016, Drug Name: *DuoNeb, Dose Ordered: 3 mL, Route: Nebulize, Status: Given, Time: 12:46 03/20/2016, Drug Name: azithromycin intravenous, Dose Ordered: 500 mg, Route: IV Piggy Back, Status: Given, Time: 12:02 03/20/2016, Drug Name: cefTRIAXone injection, Dose Ordered: 2 g, Route: IV Piggy Back, Status: Given, Time: 12:00 03/20/2016, Drug Name: Lovenox, Dose Ordered: 1 mg/kg, Route: Subcutaneous, Status: Given, Time: 11:09 03/20/2016, Drug Name: Nitro-Bid transdermal, Dose Ordered: 1 inch, Route: Topical, Status: Given, Time: 11:08 03/20/2016, Drug Name: *nitroglycerin sublingual, Dose Ordered: 0.4 mg, Route: Sublingual, Status: Given, Time: 09:52 03/20/2016, Drug Name: methylPREDNISolone sodium succ injection, Dose Ordered: 125 mg, Route: IV Push, Status: Given, Time: 09:51 03/20/2016, Drug Name: sodium chloride 0.9 % intravenous, Dose Ordered: 125 mL/hr, Route: IV Fluid Infusion, Status: Given, Time: 09:50 03/20/2016, Drug Name: aspirin oral, Dose Ordered: 324 mg, Route: Oral, Status: Given, Time: 09:48 03/20/2016, Drug Name: *DuoNeb, Dose Ordered: 3 mL, Route: Nebulize, Status: Given, Time: 09:40 03/20/2016, *Additional information available in notes, Detailed record available in Medication Service section. MEDICATION SERVICE Amidate: Order: Amidate (etomidate) - Dose: 20 mg : IV Push Schedule: Now Notes: verbal order Ordered by: Nemesio Umana DO Entered by: SHANE Gaspar Mar 20, 2016 13:30 Documented as given by: SHANE Gaspar Mar 20, 2016 13:00 Patient, Medication, Dose, Route and Time verified prior to &a-1R&a+25V*p+0X*w4519N*c202B*c15G*c2P*p-0X&a-25V&a+1R Name: Hayden Corado : 1950 F66 MedRec: [id number] AcctNum: [id number] Prepared: Angelina Mar 20, 2016 13:59 by Interface Page 8 of 21 pMD [facility] EMERGENCY RECORD administration. Amount given: 20mg, IV SITE #1 IVP, subsequent different medication, Rapidly, Awake and alert- acceptable, Catheter placement confirmed via flush prior to administration, IV site without signs or symptoms of infiltration during medication administration, No swelling during administration, No drainage during administration, IV flushed after administration, Correct patient, time, route, dose and medication confirmed prior to administration, Patient advised of actions and side-effects prior to administration, Allergies confirmed and medications reviewed prior to administration, Administered by SHANE Joseph, Patient in position of comfort, Side rails up, Cart in lowest position, Family at bedside, Co-signed by: DO Angelina Campos Mar 20, 2016 13:37. aspirin oral: Order: aspirin oral (aspirin) - Dose: 324 mg : Oral Ordered by: Nemesio Umana DO Entered by: DO Angelina Campos Mar 20, 2016 09:40 , Acknowledged by: SHANE Gaspar Mar 20, 2016 09:44 Documented as given by: SHANE Gaspar Mar 20, 2016 09:48 Patient, Medication, Dose, Route and Time verified prior to administration. Amount given: 324MG, Site: Medication administered P.O., Correct patient, time, route, dose and medication confirmed prior to administration, Patient advised of actions and side-effects prior to administration, Allergies confirmed and medications reviewed prior to administration, Patient in position of comfort, Side rails up, Cart in lowest position, Family at bedside. : Follow Up : Response assessment performed, No signs or symptoms of allergic reaction noted. (12:00 KMOR) azithromycin intravenous: Order: azithromycin intravenous (azithromycin) - Dose: 500 mg : IV Piggy Back Ordered by: Nemesio Umana DO Entered by: DO Angelina Campos Mar 20, 2016 11:51 , Acknowledged by: SHANE Gaspar Mar 20, 2016 11:52 Documented as given by: SHANE Gaspar Mar 20, 2016 12:02 Patient, Medication, Dose, Route and Time verified prior to administration. Amount given: 500MG, IV SITE #1 IVPB or drip, initial infusion, IVPB mixed in: 250ml, Fluid: 0.9NS, Verified Blood Culture collection prior to Antibiotic administration, Connections checked prior to administration, Line traced prior to administration, Catheter placement confirmed via flush prior to administration, IV site without signs or symptoms of infiltration during medication administration, No swelling during administration, No drainage during administration, IV flushed after administration, Correct patient, time, route, dose and medication confirmed prior to administration, Patient advised of actions and side-effects prior to administration, Allergies confirmed and medications reviewed prior to administration, Patient in position of comfort, Side rails up, Cart in lowest position, Family at bedside. &a-1R&a+25V*p+0X*a1446A*c202B*c15G*c2P*p-0X&a-25V&a+1R Name: Hayden Corado : 1950 F66 MedRec: [id number] AcctNum: [id number] Prepared: MonMar 20, 2016 13:59 by Interface Page 9 of 21 pMD [facility] EMERGENCY RECORD : Follow Up : Response assessment performed, No signs or symptoms of allergic reaction noted, _IV SITE #1:_, Medication infusion discontinued, on MonMar 20, 2016 12:55, 55 minutes, ., Total amount infused: 200ml, IV Line flushed after administration. (12:50 KMOR) cefTRIAXone injection: Order: cefTRIAXone injection (ceftriaxone sodium) - Dose: 2 g : IV Piggy Back Ordered by: Nemesio Umana DO Entered by: Nemesio Umana DO MonMar 20, 2016 11:51 , Acknowledged by: Nery Medel RN MonMar 20, 2016 11:52 Documented as given by: Nery Medel RN [place] Mar 20, 2016 12:00 Patient, Medication, Dose, Route and Time verified prior to administration. Amount given: 2G, IV SITE #1 IVPB or drip, initial infusion, IVPB mixed in: 100ml, Fluid: 0.9NS, via primary tubing, Verified Blood Culture collection prior to Antibiotic administration, Connections checked prior to administration, Line traced prior to administration, Catheter placement confirmed via flush prior to administration, IV site without signs or symptoms of infiltration during medication administration, No swelling during administration, No drainage during administration, IV flushed after administration, Correct patient, time, route, dose and medication confirmed prior to administration, Patient advised of actions and side-effects prior to administration, Allergies confirmed and medications reviewed prior to administration, Patient in position of comfort, Side rails up, Cart in lowest position, Family at bedside. : Follow Up : Response assessment performed, No signs or symptoms of allergic reaction noted, _IV SITE #1:_, Medication infusion discontinued, on MonMar 20, 2016 12:35, 35 minutes, ., Total amount infused: 100ML. (12:36 KMOR) DuoNeb: Order: DuoNeb (ipratropium bromide/albuterol sulfate) - Dose: 3 mL : Nebulize Notes: (0.5mg Ipratropium [place]/3mg Albuterol Sulfate = 3ml) Ordered by: Nemesio Umana DO Entered by: DO Angelina Campos Mar 20, 2016 09:38 Documented as given by: SHANE Gaspar Mar 20, 2016 09:40 Patient, Medication, Dose, Route and Time verified prior to administration. Amount given: 3ML, Site: Medication administered via Hand-held nebulizer, With oxygen, Correct patient, time, route, dose and medication confirmed prior to administration, Patient advised of actions and side-effects prior to administration, Allergies confirmed and medications reviewed prior to administration, Patient in position of comfort, Side rails up, Cart in lowest position. : Follow Up : Response assessment performed, No signs or symptoms of allergic reaction noted, Decreased respiratory rate, Decreased respiratory effort. (10:15 KMOR) DuoNeb: Order: DuoNeb (ipratropium bromide/albuterol sulfate) - Dose: 3 mL : Nebulize Notes: (0.5mg Ipratropium [place]/3mg Albuterol Sulfate = 3ml) &a-1R&a+25V*p+0X*r0405R*c202B*c15G*c2P*p-0X&a-25V&a+1R Name: Hayden Corado : 1950 F66 MedRec: [id number] AcctNum: [id number] Prepared: Angelina Mar 20, 2016 13:59 by Interface Page 10 of 21 pMD [facility] EMERGENCY RECORD Ordered by: Nemesio Umana DO Entered by: SHANE Gaspar Mar 20, 2016 12:45 Documented as given by: SHANE Gaspar Mar 20, 2016 12:46 Patient, Medication, Dose, Route and Time verified prior to administration. Amount given: 3ML, Site: Medication administered via Hand-held nebulizer, With oxygen, Correct patient, time, route, dose and medication confirmed prior to administration, Patient advised of actions and side-effects prior to administration, Allergies confirmed and medications reviewed prior to administration, Patient in position of comfort, Side rails up, Cart in lowest position, Family at bedside, Co-signed by: DO Angelina Campos Mar 20, 2016 12:56. fentaNYL (PF) injection: Order: fentaNYL (PF) injection (fentanyl citrate/preservative free) - Dose: 50 mcg : IV Push Schedule: Now Notes: verbal order Ordered by: Nemesoi Umana DO Entered by: SHANE Gaspar Mar 20, 2016 13:31 Documented as given by: SHANE Gaspar Mar 20, 2016 13:30 Patient, Medication, Dose, Route and Time verified prior to administration. Amount given: 50mcg, IV SITE #1 IVP, repeat same medication, Rapidly, Connections checked prior to administration, Line traced prior to administration, Catheter placement confirmed via flush prior to administration, IV site without signs or symptoms of infiltration during medication administration, No swelling during administration, No drainage during administration, IV flushed after administration, Correct patient, time, route, dose and medication confirmed prior to administration, Patient advised of actions and side-effects prior to administration, Allergies confirmed and medications reviewed prior to administration, Patient in position of comfort, Side rails up, Cart in lowest position, Family at bedside, Co-signed by: DO Angelina Campos Mar 20, 2016 13:36. fentaNYL (PF) injection: Order: fentaNYL (PF) injection (fentanyl citrate/preservative free) - Dose: 100 mcg : IV Push Schedule: Now Notes: verbal order Ordered by: Nemesio Umana DO Entered by: SHANE Gaspar Mar 20, 2016 13:31 Documented as given by: SHANE Gaspar Mar 20, 2016 13:15 Patient, Medication, Dose, Route and Time verified prior to administration. Amount given: 100mcg, IV SITE #1 IVP, subsequent different medication, Slowly, Awake and alert- acceptable, Catheter placement confirmed via flush prior to administration, IV site without signs or symptoms of infiltration during medication administration, No swelling during administration, No drainage during administration, IV &a-1R&a+25V*p+0X*[id number]*c202B*c15G*c2P*p-0X&a-25V&a+1R Name: Hayden Corado : 1950 F66 MedRec: [id number] AcctNum: [id number] Prepared: Angelina Mar 20, 2016 13:59 by Interface Page 11 of 21 pMD [facility] EMERGENCY RECORD flushed after administration, Correct patient, time, route, dose and medication confirmed prior to administration, Patient advised of actions and side-effects prior to administration, Allergies confirmed and medications reviewed prior to administration, Patient in position of comfort, Side rails up, Cart in lowest position, Family at bedside, Co-signed by: DO Angelina Campos Mar 20, 2016 13:37. Lasix injection: Order: Lasix injection (furosemide) - Dose: 80 mg : IV Push Schedule: Now Notes: verbal order Ordered by: Nemesio Umana DO Entered by: SHANE Gaspar Mar 20, 2016 13:52 Documented as given by: SHANE Gaspar Mar 20, 2016 13:43 Patient, Medication, Dose, Route and Time verified prior to administration. Amount given: 80mg, IV SITE #1 IVP, subsequent different medication, Slowly, Connections checked prior to administration, Line traced prior to administration, Catheter placement confirmed via flush prior to administration, IV site without signs or symptoms of infiltration during medication administration, No swelling during administration, No drainage during administration, IV flushed after administration, Correct patient, time, route, dose and medication confirmed prior to administration, Patient advised of actions and side-effects prior to administration, Allergies confirmed and medications reviewed prior to administration, Patient in position of comfort, Side rails up, Cart in lowest position, Family at bedside. Lovenox: Order: Lovenox (enoxaparin sodium) - Dose: 1 mg/kg : Subcutaneous Ordered by: Nemesio Umana DO Entered by: DO Angelina Campos Mar 20, 2016 10:32 , Acknowledged by: Nery Medel RN MonMar 20, 2016 10:33, Co-signed by: SHANE Paris Mar 20, 2016 11:04 Documented as given by: SHANE Gaspar Mar 20, 2016 11:09 Patient, Medication, Dose, Route and Time verified prior to administration. Amount given: 90mg, Medication administered to right lower back, Advised not to ambulate without assistance, Patient in position of comfort, Side rails up, Cart in lowest position, Family at bedside. : Follow Up : Response assessment performed, No signs or symptoms of allergic reaction noted. (12:36 KMOR) : Follow Up : Response assessment performed, No signs or symptoms of allergic reaction noted. (12:00 KMOR) magnesium sulfate injection: Order: magnesium sulfate injection (magnesium sulfate) - Dose: 2 g : IV Piggy Back Ordered by: Nemesio Umana DO Entered by: DO Angelina Campos Mar 20, 2016 12:57 Documented as given by: SHANE Gaspar Mar 20, 2016 13:00 Patient, Medication, Dose, Route and Time verified prior to administration. &a-1R&a+25V*p+0X*x5498Y*c202B*c15G*c2P*p-0X&a-25V&a+1R Name: Hayden Corado : 1950 F66 MedRec: [id number] AcctNum: [id number] Prepared: Angelina Mar 20, 2016 13:59 by Interface Page 12 of 21 pMD [facility] EMERGENCY RECORD Amount given: 2g, IV SITE #1 IVPB or drip, initial infusion, Premixed, Connections checked prior to administration, Line traced prior to administration, Catheter placement confirmed via flush prior to administration, IV site without signs or symptoms of infiltration during medication administration, No swelling during administration, No drainage during administration, IV flushed after administration, Correct patient, time, route, dose and medication confirmed prior to administration, Patient advised of actions and side-effects prior to administration, Allergies confirmed and medications reviewed prior to administration, Patient in position of comfort, Side rails up, Cart in lowest position, Family at bedside. methylPREDNISolone sodium succ injection: Order: methylPREDNISolone sodium succ injection (methylprednisolone sod succ) - Dose: 125 mg : IV Push Ordered by: Nemesio Umana DO Entered by: DO Angelina Campos Mar 20, 2016 09:38 , Acknowledged by: SHANE Gaspar Mar 20, 2016 09:43 Documented as given by: SHANE Gaspar Mar 20, 2016 09:51 Patient, Medication, Dose, Route and Time verified prior to administration. Amount given: 125MG, IV SITE #1 IVP, initial medication, Slowly, Catheter placement confirmed via flush prior to administration, IV site without signs or symptoms of infiltration during medication administration, No swelling during administration, No drainage during administration, IV flushed after administration, Correct patient, time, route, dose and medication confirmed prior to administration, Patient advised of actions and side-effects prior to administration, Allergies confirmed and medications reviewed prior to administration, Patient in position of comfort, Side rails up, Cart in lowest position, Family at bedside. : Follow Up : Response assessment performed, No signs or symptoms of allergic reaction noted, Decreased respiratory rate, Decreased respiratory effort, _IV SITE #1:_. (12:37 KMOR) midazolam injection: Order: midazolam injection (midazolam HCl) - Dose: 10 mg : IV Fluid Infusion Schedule: Now Notes: 10 mg Versed in 100mL NS, start infusion at 10mL/hr IV. Ordered by: Nemesio Umana DO Entered by: DO Angelina Campos Mar 20, 2016 13:41 Documented as given by: SHANE Gaspar Mar 20, 2016 13:48 Patient, Medication, Dose, Route and Time verified prior to administration. Amount given: 10mg, IV SITE #1 IVPB or drip, initial infusion, IVPB mixed in: 100ml, Fluid: 0.9NS, at 1ml/hr, Ordering Physician approved to Give, Catheter placement confirmed via flush prior to administration, IV site without signs or symptoms of infiltration during medication administration, No swelling during administration, No drainage during administration, IV flushed after administration, Correct patient, time, route, dose and medication confirmed prior to &a-1R&a+25V*p+0X*u9064W*c202B*c15G*c2P*p-0X&a-25V&a+1R Name: Hayden Corado : 1950 F66 MedRec: [id number] AcctNum: [id number] Prepared: Angelina Mar 20, 2016 13:59 by Interface Page 13 of 21 pMD [facility] EMERGENCY RECORD administration, Patient advised of actions and side-effects prior to administration, Allergies confirmed and medications reviewed prior to administration, Patient in position of comfort, Side rails up, Cart in lowest position. Nitro-Bid transdermal: Order: Nitro-Bid transdermal (nitroglycerin) - Dose: 1 inch : Topical Ordered by: Nemesio Umana DO Entered by: DO Angelina Campos Mar 20, 2016 10:32 , Acknowledged by: SHANE Gaspar Mar 20, 2016 10:33 Documented as given by: SHANE Gaspar Mar 20, 2016 11:08 Patient, Medication, Dose, Route and Time verified prior to administration. Amount given: 1 inch, Correct patient, time, route, dose and medication confirmed prior to administration, Patient advised of actions and side-effects prior to administration, Allergies confirmed and medications reviewed prior to administration, Advised not to ambulate without assistance, Patient in position of comfort, Side rails up, Cart in lowest position, Family at bedside. : Follow Up : Response assessment performed, No signs or symptoms of allergic reaction noted. (12:37 KMOR) nitroglycerin sublingual: Order: nitroglycerin sublingual (nitroglycerin) - Dose: 0.4 mg : Sublingual Schedule: Every 5 minutes Notes: x 3 Ordered by: Nemesio Umana DO Entered by: DO Angelina Campos Mar 20, 2016 09:40 , Acknowledged by: SHANE Gaspar Mar 20, 2016 09:44 Documented as given by: SHANE Gaspar Mar 20, 2016 09:52 Patient, Medication, Dose, Route and Time verified prior to administration. Amount given: 1 TAB, Site: Medication administered S.L., Snack given with administration, Mouth check performed after administration of medication, Correct patient, time, route, dose and medication confirmed prior to administration, Patient advised of actions and side-effects prior to administration, Allergies confirmed and medications reviewed prior to administration, Patient in position of comfort, Side rails up, Cart in lowest position, Family at bedside. Quelicin: Order: Quelicin (succinylcholine chloride) - Dose: 100 mg : IV Push Schedule: Now Notes: verbal order Ordered by: Nemesio Umana DO Entered by: SHANE Gaspar Mar 20, 2016 13:30 Documented as given by: SHANE Gaspar Mar 20, 2016 13:33 Patient, Medication, Dose, Route and Time verified prior to administration. Amount given: 100mg, IV SITE #1 IVP, subsequent different medication, Rapidly, Ordering Physician approved to Give, Catheter placement confirmed via flush prior to administration, IV site without signs or symptoms of infiltration during medication &a-1R&a+25V*p+0X*e3729M*c202B*c15G*c2P*p-0X&a-25V&a+1R Name: Hayden Corado : 1950 F66 MedRec: [id number] AcctNum: [id number] Prepared: Angelina Mar 20, 2016 13:59 by Interface Page 14 of 21 pMD [facility] EMERGENCY RECORD administration, No swelling during administration, No drainage during administration, IV flushed after administration, Correct patient, time, route, dose and medication confirmed prior to administration, Patient advised of actions and side-effects prior to administration, Allergies confirmed and medications reviewed prior to administration, Patient in position of comfort, Side rails up, Cart in lowest position, Family at bedside, Co-signed by: DO Angelina Campos Mar 20, 2016 13:37. sodium chloride 0.9 % intravenous: Order: sodium chloride 0.9 % intravenous (0.9 % sodium chloride) - Dose: 125 mL/hr : IV Fluid Infusion Schedule: Now Ordered by: Nemesio Umana DO Entered by: DO Angelina Campos Mar 20, 2016 09:39 , Acknowledged by: SHANE Gaspar Mar 20, 2016 09:43 Documented as given by: SHANE Gaspar Mar 20, 2016 09:50 Patient, Medication, Dose, Route and Time verified prior to administration. Amount given: 125ML/HR, IV SITE #1 IV fluids established for hydration, IV SITE #1 into left hand, IV SITE #1 1st bag hung, amount 1 Liter hung, IV SITE #1 Rate of infusion (non-bolus) Infusing at 125 ml/hr, via primary tubing, IV SITE #1 on IV pump, Connections checked prior to administration, Line traced prior to administration, Catheter placement confirmed via flush prior to administration, IV site without signs or symptoms of infiltration during medication administration, No swelling during administration, No drainage during administration, IV flushed after administration, Correct patient, time, route, dose and medication confirmed prior to administration, Patient advised of actions and side-effects prior to administration, Allergies confirmed and medications reviewed prior to administration, Patient in position of comfort, Side rails up, Cart in lowest position, Family at bedside. Versed injection: Order: Versed injection (midazolam HCl) - Dose: 5 mg : IV Push Schedule: Now Notes: verbal order Ordered by: Nemesio Umana DO Entered by: SHANE Gaspar Mar 20, 2016 13:32 Documented as given by: SHANE Gaspar Mar 20, 2016 13:20 Patient, Medication, Dose, Route and Time verified prior to administration. Amount given: 5mg, IV SITE #1 IVP, subsequent different medication, Ordering Physician approved to Give, Catheter placement confirmed via flush prior to administration, IV site without signs or symptoms of infiltration during medication administration, No swelling during administration, No drainage during administration, IV flushed after administration, Correct patient, time, route, dose and medication confirmed prior to administration, Patient advised of actions and side-effects prior to administration, Allergies confirmed and medications reviewed prior to administration, Patient in position of &a-1R&a+25V*p+0X*d7950V*c202B*c15G*c2P*p-0X&a-25V&a+1R Name: Hayden Corado : 1950 F66 MedRec: [id number] AcctNum: [id number] Prepared: Angelina Mar 20, 2016 13:59 by Interface Page 15 of 21 pMD [facility] EMERGENCY RECORD comfort, Side rails up, Cart in lowest position, Family at bedside, Co-signed by: DO Angelina Campos Mar 20, 2016 13:36. HPI SHORTNESS OF BREATH (09:40 MBRI) CHIEF COMPLAINT: Patient presents for evaluation of shortness of breath, Patient presents for evaluation of chest pain. HISTORIAN: History provided by patient. LOCATION: Symptoms are localized, most severe in substernal area, No radiation of pain, Pain has not moved in location over time. QUALITY: Symptoms described as tightness, Symptoms described as wheezing, Pain is dull in nature, described as pressure-like, described as tightness reported. SEVERITY: Maximum severity of symptoms severe, Currently symptoms are severe. TIME COURSE: Gradual onset of symptoms, 15, hours prior to arrival, are constant. ASSOCIATED WITH: No associated anxiety, No associated chills, Associated with cough, Associated with chest pain, No associated diaphoresis, No associated diarrhea, Associated with dyspnea on exertion, No associated fever, No associated hemoptysis, No associated increased inhaler use, No associated nausea, No associated palpitations, Associated with paroxysmal nocturnal dyspnea, Associated with peripheral edema, No associated pleuritic chest pain, No associated upper respiratory infection, No associated vomiting, Associated with wheezing. EXACERBATED BY: Patient's condition exacerbated by exercise, Patient's condition exacerbated by lying flat, Patient's condition exacerbated by smoking. RELIEVED BY: Patient's condition relieved by nothing, Patient's condition relieved by nothing because patient has not tried anything for relief. RISK FACTORS: Coronary artery disease risk factors, include smoking, No thoracic aortic dissection risk factors, Pulmonary embolism risk factors, include smoking. ROS (09:42 MBRI) CONSTITUTIONAL: Negative constitutional review of systems, Historian denies chills, denies fever. EYES: Negative eye review of systems. ENT: Negative ears, nose, throat review of systems. CARDIOVASCULAR: Historian reports chest pain, substernal, no radiation, Historian reports diaphoresis, reports dyspnea on exertion, reports edema, denies syncope, denies palpitations. RESPIRATORY: Historian denies cough, reports shortness of breath, denies sputum, denies stridor, reports wheezing. GI: Negative gastrointestinal review of systems, Historian denies abdominal pain, denies nausea, denies vomiting. &a-1R&a+25V*p+0X*z0468E*c202B*c15G*c2P*p-0X&a-25V&a+1R Name: Hayden Corado : 1950 F66 MedRec: [id number] AcctNum: [id number] Prepared: Angelina Mar 20, 2016 13:59 by Interface Page 16 of 21 pMD [facility] EMERGENCY RECORD GENITOURINARY FEMALE: Negative genitourinary review of systems. MUSCULOSKELETAL: Negative musculoskeletal review of systems. SKIN: Negative skin review of systems. NEUROLOGIC: Negative neurologic review of systems, Historian denies headache, denies sensory changes, denies speech changes. ENDOCRINE: Negative endocrine review of systems. HEMO/LYMPHATIC: Normal hematologic/lymphatic system review. NOTES: All systems reviewed, negative except as described above. PAST MEDICAL HISTORY (09:40 KMOR) MEDICAL HISTORY: No past medical history, Flu vaccine not up to date, Tetanus not up to date, Pneumococcal vaccine not up to date. FEMALE SURGICAL HISTORY: Patient has no surgical history. PSYCHIATRIC HISTORY: No previous psychiatric history. SOCIAL HISTORY: Patient currently uses tobacco, smokes cigarettes, daily, Patient smokes 1 pack per day. PHYSICAL EXAM (09:43 MBRI) CONSTITUTIONAL: Vital Signs Reviewed, Pulse, tachycardic, Blood pressure, hypertensive, Respiratory rate, increased, Abnormal Pulse Oximetry, Patient appears, in moderate pain distress, Patient alert and oriented to person, place and time, Nursing notes reviewed. HEAD: Head exam normal, Head exam included findings of head atraumatic, normocephalic. EYES: Eye exam included findings of eyelids normal to inspection, Pupils equally round and reactive to light, Extraocular muscles intact. ENT: ENT exam normal, Ear exam normal, Nose exam normal. NECK: Neck exam included findings of normal range of motion, Trachea midline, no tenderness, no abrasions, no contusions, no ecchymosis. RESPIRATORY CHEST: Respiratory exam included findings of, moderate respiratory distress, Breath sounds not clear, Wheezing present, audibly, posteriorally, diffusely, No rales, No rhonchi, Breath sounds diminished, Chest exam included findings of chest movement symmetrical, Chest expansion equal, no tenderness, no crepitus. CARDIOVASCULAR: Cardiovascular exam included findings of, rate tachycardic, rhythm regular, Heart sounds normal, Carotids normal, Pedal pulses normal. ABDOMEN FEMALE: Abdominal exam normal, Abdominal exam included findings of abdomen nontender, Bowel sounds normal. BACK: Back exam included findings of normal inspection, no tenderness. UPPER EXTREMITY: Upper extremity exam included findings of inspection normal, Range of motion normal, Motor strength normal, &a-1R&a+25V*p+0X*j3421O*c202B*c15G*c2P*p-0X&a-25V&a+1R Name: Hayden Corado : 1950 F66 MedRec: [id number] AcctNum: [id number] Prepared: Angelina Mar 20, 2016 13:59 by Interface Page 17 of 21 pMD [facility] EMERGENCY RECORD Sensation intact, Radial pulse normal, no cyanosis, no clubbing, no edema. LOWER EXTREMITY: Lower extremity exam included findings of inspection normal, Range of motion normal, Motor strength normal, Sensation intact, Pedal pulse normal, Jhonatan's negative, no cyanosis, no clubbing, no edema, no calf tenderness, no palpable cords. NEURO: Eckley coma scale 15, Neuro exam findings include patient oriented to person, place and time, Speech normal, Gait normal. SKIN: Skin exam included findings of skin warm, dry, and normal in color. PSYCHIATRIC: Psychiatric exam included findings of patient oriented to person place and time. LAB INTERPRETATION (10:37 MBRI) INTERPRETATION: I reviewed the lab results. EVENTS TRANSFER: Triage to Emergency Emergency Room -. (Angelina Mar 20, 2016 09:30 KMOR) Removed from Emergency Emergency Room -. (13:53 KMOR) RADIOLOGYINTERPRETATION (11:53 MBRI) CHEST: Chest CT, with contrast shows, patchy infiltrate, to the right upper lobe, to the right lower lobe, no hemothorax, pleural effusion less than 10% on the left, pleural effusion less than 10% on the right, no pulmonary embolism. 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 EKG INTERPRETATION (09:45 MBRI) 12 LEAD EKG INTERPRETATION: 12 lead EKG interpreted by Emergency Department Physician at time of study, 12 lead EKG shows, sinus tachycardia, Rate (beats per minute): 111, with no ectopics, Conduction with, nonspecific intraventricular conduction delay, ST, depression, in lead I, in lead II, in aVl, in aVf, in V4, in V5, in V6, [place] normal, Biatrial enlargement, LVH with repol abnml, possible age undetermined inf infarct. O2SAT INTERPRETATION (09:44 MBRI) O2SAT: Oxygen saturation interpretation: Hypoxic, Intervention required: patient observed, Intervention required: Oxygen administration, Intervention required: aerosol treatment. DOCTOR NOTES RE-EVALUATION: Routine re-evaluation, after administration of bronchodilator nebulizer treatments, Routine re-evaluation, after administration of nitroglycerin, Routine re-evaluation, after observation, Routine re-evaluation, after administration of oxygen &a-1R&a+25V*p+0X*o9350X*c202B*c15G*c2P*p-0X&a-25V&a+1R Name: Hayden Corado : 1950 F66 MedRec: [id number] AcctNum: [id number] Prepared: Angelina Mar 20, 2016 13:59 by Interface Page 18 of 21 pMD [facility] EMERGENCY RECORD therapy, The patient's condition has improved, Pt with Improved air movement and sig decrease in her wheezing. She continues to have some hypoxia in the 88-90 range on 2-3 L NC so this has been increased to 4LPM. She demonstrates some rales in the rizwan bases of the lungs. Will continue with second Neb and monitor. (10:07 MBRI) Routine re-evaluation, after administration of bronchodilator nebulizer treatments, Routine re-evaluation, after observation, Routine re-evaluation, after administration of oxygen therapy, The patient's condition has improved, Pt appears clinically improved. (10:37 MBRI) The patient's condition has improved, VS improved. Pt pain free. (11:52 MBRI) PATIENT PLAN: The patient requires a transfer and will be transferred, per physician request, due to availability of specialty care, Transfer form completed, Accepted for care by Dr Farah , at 1158. (11:52 MBRI) PROBLEM LIST No recorded problems DIAGNOSIS (11:52 MBRI) FINAL: PRIMARY: NSTEMI, ADDITIONAL: PNEUMONIA UNSPECIFIED ORGANISM, uncontrolled HTN, wheezing with likely COPD exacerbation. DISPOSITION PATIENT: Disposition Type: Transfer, Disposition: Transfer to [facility], Condition: Guarded. (10:36 MBRI) Patient left the department. (13:53 KMOR) PRESCRIPTION No recorded prescriptions IMAGING *EKG: Image captured from scanner. (10:18 LGIB) CONSENTS: Image captured from scanner. (12:05 LGIB) *MEMORANDUM OF TRANSFER: Image captured from scanner. (12:06 LGIB) PHYSICIAN CERTIFICATION STATEMENT: Image captured from scanner. (12:06 LGIB) RESULTS (10:31 MBRI) LABORATORY: Cardiac Profile w/CKMB & TropI Collection DT: Angelina Mar 20, 2016 09:55, Critical Call CKMBM @ 1026 , , *CKMB 7.4 - *H ng/mL, Range (0-6.6), Critical value!, *Troponin I 0.297 - H ng/mL, Range (< 0.028), Reference Range &a-1R&a+25V*p+0X*r9831G*c202B*c15G*c2P*p-0X&a-25V&a+1R Name: Hayden Corado : 1950 F66 MedRec: [id number] AcctNum: [id number] Prepared: MonMar 20, 2016 13:59 by Interface Page 19 of 21 pMD [facility] EMERGENCY RECORD , 0.00 - 0.028 ng/mL Negative 0.029 - 0.29 ng/mL , Indeterminate Greater or Equal to 0.3 ng/mL Strongly suggests [place] , . B type Natriuretic Peptide Collection DT: MonMar 20, 2016 09:55, *B type Natriuretic Peptide 368.3 - H pg/mL, Range (0-100). Lipase Collection DT: MonMar 20, 2016 09:55, Lipase 16 U/L, Range (8-78). CK (CPK) Collection DT: MonMar 20, 2016 09:55, CK (CPK) 116 U/L, Range (29-168). Comprehensive Metabolic Panel Collection DT: MonMar 20, 2016 09:55, Sodium 144 mmol/L, Range (136-145), Potassium 3.8 mmol/L, Range (3.5-5.1), *Chloride 111 - H mmol/L, Range (98-107), *Carbon Dioxide 19 - L mmol/L, Range (23-31), Anion Gap 18 mmol/L, Range (10-20), BUN (Urea Nitrogen) 18 mg/dL, Range (9.8-20.1), Creatinine 1.00 mg/dL, Range (0.6-1.1), Estimated GFR-MDRD 67 , Reference Range for Estimated GFR: Greater than 90, mL/min/1.73 m2 NOTE: The MDRD equation has not been validated for use, with the elderly (over 70 years of age), women, patients with, serious comorbid condition or persons with extremes of body size, muscle, mass, or nutritional status. , *Glucose 128 - H mg/dL, Range (80-115), Calcium 8.9 mg/dL, Range (7.8-10.44), Bilirubin, Total 0.2 mg/dL, Range (0.2-1.2), Protein, Total 7.0 g/dL, Range (5.8-8.1), NOTE: Plasma values are generally 0.3 to 0.5 g/dL higher than serum values, due to the presence of fibrinogen. , Albumin 3.6 g/dL, Range (3.4-4.8), Globulin 3.4 g/dL, Range (2.4-3.5), *Alb/Glob Ratio 1.1 - L g/dL, Range (1.2-2.2), Alkaline Phosphatase 77 U/L, Range (40-150), AST (SGOT) 18 U/L, Range (5-34), ALT (SGPT) 9 U/L, Range (0-55). D-Dimer (Quantitative) Collection DT: Angelina Mar 20, 2016 09:55, See comment below , Anticoagulant? NONE Medical Necessity SUSPECT COAGULOPATHY , *D-Dimer Test 0.95 - H *mcg/mL, Range (0.27-0.43), * Reference Range Units: mcg/mL of fibrinogen equivalent, units(FEU) Based upon a retrospective study of [facility] patients in July 2005, a result of Less than 0.44 mcg/mL FEU is, predictive of the absence of a DVT or PE. . PTT Collection DT: Angelina Mar 20, 2016 09:55, &a-1R&a+25V*p+0X*x1702V*c202B*c15G*c2P*p-0X&a-25V&a+1R Name: Hayden Corado : 1950 F66 MedRec: [id number] AcctNum: [id number] Prepared: [place] Mar 20, 2016 13:59 by Interface Page 20 of 21 [facility] EMERGENCY RECORD See comment below , Anticoagulant? NONE Medical Necessity SUSPECT COAGULOPATHY , PTT 26.6 SEC, Range (22.9-36.1). Protime with INR Collection DT: Angelina Mar 20, 2016 09:55, See comment below , Anticoagulant? NONE Medical Necessity SUSPECT COAGULOPATHY , Prothrombin Time 13.1 SEC, Range (12.0-14.7), INR-International Normal Ratio 1.0 , ATTENTION: READ CAREFULLY , The, recommended therapeutic ranges for oral anticoagulant treatments are: , , Low Intensity: 1.5 - 2.0 Moderate Intensity: 2.0, - 3.0 High Intensity (1): 2.5 - 3.5 High, Intensity (2): 3.0 - 4.0 CRITICAL: >, 4.0 . CBC with Differential Collection DT: Angelina Mar 20, 2016 09:55, *White Blood Cell (WBC) Count 14.8 - H thou/uL, Range (4.8-10.8), Red Blood Cell (RBC) Count 4.78 mill/uL, Range (4.20-5.40), Hemoglobin 14.8 g/dL, Range (12.0-16.0), Hematocrit 46.5 %, Range (36.0-47.0), Mean Corpuscular Volume 97.3 fl, Range (81.0-99.0), Mean Corpuscular Hemoglobin 31.0 pg, Range (27.0-31.0), *Mean Corpuscular HGB CONC 31.8 - L g/dL, Range (32.0-36.0), *RBC Distribution Width 14.6 - H %, Range (11.5-14.5), Platelet Count 343 thou/uL, Range (130-400), Mean Platelet Volume 8.4 fL, Range (7.4-10.4), *%Neutrophils 76.6 - H %, Range (42.0-75.0), *%Lymphocytes 18.2 - L %, Range (21.0-51.0), %Monocytes 3.9 %, Range (0.0-10.0), %Eosinophils 0.2 %, Range (0.0-10.0), *%Basophils 1.1 - H %, Range (0.0-1.0), *#Neutrophils 11.4 - H thou/uL, Range (1.40-6.50), #Lymphocytes 2.7 thou/uL, Range (1.20-3.40), *#Monocytes 0.6 - H thou/uL, Range (0.11-0.59), #Eosinphils 0.0 thou/uL, Range (0.0-0.7), #Basophils 0.2 thou/uL, Range (0.0-0.2). Collins: KMOR=SHANE Medel, Nery LGIB=SHANE Young, Elke MBRI=DO Umana Matthew &a-1R&a+25V*p+0X*t7475I*c202B*c15G*c2P*p-0X&a-25V&a+1R Name: Hayden Corado : 1950 F66 MedRec: [id number] AcctNum: [id number] Prepared: Angelina Mar 20, 2016 13:59 by Interface Page 21 of 21 pMD MTDD
--- NOTE | 2016-03-20 15:45 | RAD ---
PORTABLE CHEST 03/20/2016 An AP portable film at 1105 hours is compared with a 03/30/2011 study. The heart is mildly enlarged. Diffuse pulmonary edema is present. No lobar consolidation or effusi on was seen. IMPRESSION: Cardiomegaly and pulmonary edema, presumably due to congestive heart failure. POS: HOME
--- NOTE | 2016-03-20 16:01 | CT ---
PRELIMINARY REPORT/[facility]/EMERGENCY AFTER HOURS PROCEDURE: \H\EXAM: \N\CT Angiography Chest With Intravenous Contrast. \H\CLINICAL HISTORY: \N\66 years old, female; Pain and signs and symptoms; Dyspnea; Chest pain; Type not specified; Patie nt HX: SOB with elev d-dimer 0.95; \H\ TECHNIQUE: \N\Axial computed tomographic angiography images of the chest with intravenous contrast using pulmon irene embolism protocol. Coronal reformatted images were created and reviewed. \H\ CONTRAST: \N\81 mL of ISO 370 administered intravenously. \H\ EXAM DATE/TIME: \N\03/20/2016 10:46 AM \H\ COMPARISON: \N\No relevant prior studies available. \H\FINDINGS: \N\Pulmonary arteries: No pulmonary embolism. Aorta: No thoracic aortic aneurysm. Limited evaluation for thoracic aortic dissection. Lungs: Ill-defined coalescent nodular infiltrates anterior portions of the right upper and lower lob es Mild parenchymal changes lower portions of the lungs. Pleural spaces: Small bilateral pleural effusions. Heart: Prominent pericardial recess but no diffuse pericardial effusion. Bones: mild scoliosis Lymph nodes: No adenopathy. Other findings: Morbid obesity \H\ IMPRESSION: \N\- Ill-defined coalescent nodular infiltrates bilateral anterior upper lung lesions with small rizwan ateral pleural effusions. \H\ \N\Thank you for allowing us to participate in the care of your patient. Dictated and Authenticated by: Fidel Vargas MD 03/20/2016 11:46 AM Central Time ([place] \T\ [place]) FINAL REPORT CT ANGIO OF THE CHEST WITH CONTRAST 03/20/[address] of the chest was performed for evaluation of shortness of breath and an elevated D-dimer. Axial slices were acquired after a bolus of IV contrast. Coronal and oblique coronal reformations through the pulmonary arteries was subsequently done. There is excellent opacification of the pulmonary arteries with no filling defects to suggest emboli . There is no sign of aortic dissection or aneurysm. No mediastinal mass or adenopathy was seen. The heart is mildly enlarged. There is a little fluid in the pericardial recess but no large surrou nding pleural effusion. Small bilateral pleural effusions are present. There is some nodular infiltrative changes in the up per lobes and overall prominence of the vasculature throughout the lungs. Scans into the upper abdomen showed no acute changes. IMPRESSION: 1. No evidence of pulmonary embolism. 2. Pulmonary findings that most likely represent sequelae of congestive heart failure. The infiltra tive changes in the apices are a little more nodular which could be infectious in etiology, but the findings are somewhat symmetrical bilaterally leading me to wonder if this is really not just edema. Serial follow-up chest x-ray should be sufficient to follow. Report in agreement with preliminary reading by Caroline. POS: HOME
--- NOTE | 2016-03-20 18:59 | RAD ---
PORTABLE CHEST: Date: 03-20-16 An AP portable film at 1324 is compared with a prior exam done the same day at 1105. FINDINGS: In the interim the patient has been intubated. The tip of the endotracheal tube is appropriately ab ove the nic. A nasogastric tube appears to have been inserted. It seems to take an appropriate course into the stomach. Main difference between this film and the earlier one is significant worsening of the patient's pulm onary edema. There is no diffuse severe edema that is both interstitial and alveolar. No focal con solidations were seen. IMPRESSION: 1. Status post intubation. Tube placement is adequate. 2. Rapidly worsening severe pulmonary edema. POS: HOME
== END 2016-03-20 13:48 | disposition short-term general hospital (02) ==
LOC: BURERS 09:28
DX: I21.4 Non-ST elevation (NSTEMI) myocardial infarction (principal); J96.00 Acute respiratory failure, unspecified whether with hypoxia or hypercapnia; I10 Essential (primary) hypertension; J18.9 Pneumonia, unspecified organism
CPT/HCPCS: 36415; 71010; 71275; 80053; 82553; 83690; 83880; 84484; 85025; 85379; 85610; 85730; 87040; 93005; 94640; 94760; J0456; J0696; J1650; J1940; J2250; J2930; J3010; J3475; J7050; J7620